=== PATIENT | female | born 1965 | race Caucasian/White ===

== ENCOUNTER 2016-08-22 09:00 | Outpatient (RCR) | payer OTHER | END 2016-09-18 | disposition home or self-care (01) | LOC: PTY 09:00 | DX: M67.98 Unspecified disorder of synovium and tendon, other site (principal); M70.61 Trochanteric bursitis, right hip ==

== ENCOUNTER 2016-10-09 10:03 | Outpatient (RCR) | payer OTHER | END 2016-10-19 | disposition home or self-care (01) | LOC: PTY 10:03 | DX: M67.98 Unspecified disorder of synovium and tendon, other site (principal); M70.61 Trochanteric bursitis, right hip | CPT/HCPCS: 97035; 97110; 97140; G0283 ==

== ENCOUNTER 2016-10-30 10:00 | Outpatient (RCR) | payer OTHER | END 2016-11-18 | disposition home or self-care (01) | LOC: PTY 10:00 | DX: M67.98 Unspecified disorder of synovium and tendon, other site (principal); M70.61 Trochanteric bursitis, right hip | CPT/HCPCS: 97110; 97140; G0283 ==